=== PATIENT | female | born 1985 | race Caucasian/White ===

== ENCOUNTER → 2019-09-28 11:33 | Outpatient (CLI) | payer OTHER, MEDICAID, SELFPAY ==
[2019-09-28 12:25] LABS: Add Manual Diff / Slide Review NO; Basophils Absolute Auto 100 /uL (0-100); Basophils Percent Auto 0.9 % (0-2); Eosinophils Absolute Auto 100 /uL (0-450); Eosinophils Percent Auto 1.3 % (2-4); Hematocrit 39.1 % (36-46); Hemoglobin 13.4 g/dL (12.0-16.0); Lymphocytes Absolute Auto 3500 /uL (1100-4500); Lymphocytes Percent Auto 43.3 % (25-40); Mean Corpuscular HGB Conc 34.1 % (30-36); Mean Corpuscular Hemoglobin 28.7 PG (26-34); Mean Corpuscular Volume 84.2 fL (80-100); Monocytes Absolute Auto 600 /uL (0-900); Monocytes Percent Auto 7.8 % (3-14); Neutrophils Absolute Auto 3800 /uL (1500-7000); Neutrophils Percent Auto 46.7 % (50-75); Platelet Count 344 X10^3/uL (150-400); Red Blood Cell Count 4.65 X10^6/uL (4.0-5.2); Red Cell Distribution Width 13.1 % (11.6-14.8); White Blood Cell Count 8.1 X10^3/uL (4.5-11.0)
[2019-09-28 13:18] LABS: Free T3, Triiodothyronine Free 3.57 pg/mL (2.77-5.27); Free T4, Direct Thyroxine 0.87 ng/dL (0.78-2.19)
[2019-09-28 13:32] LABS: Thyroid Stimulating Hormone 1.88 uIU/mL (0.47-4.68)
[2019-10-01 17:17] LABS: Anti Thyroglobulin Antibody < 1 IU/mL (< 2); Thyroid Peroxidase Antibodies 3 IU/mL (< 9)
== END ==
PROVIDERS: PCP Family Medicine; Visit Provider Family Medicine
DX: L65.9 Nonscarring hair loss, unspecified (principal)
CPT/HCPCS: 36415; 84439; 84443; 84481; 85025; 86376; 86800

== ENCOUNTER → 2024-10-26 09:45 | Outpatient (CLI) | payer OTHER, SELFPAY ==
--- NOTE | 2024-10-26 09:47 | DI.MG.S_ITS ---
UNILATERAL RIGHT DIGITAL DIAGNOSTIC MAMMOGRAM 3D/2D WITH ADDITIONAL VIEWS: 10/26/2024 CLINICAL: Additional evaluation requested from prior study. Comparison is made to exam dated: 07/22/2024 mammogram - Outside facility. The breasts are heterogeneously dense, which may obscure small masses (category c / 51-75% glandular tissue). There is a 1.1 cm irregular asymmetry in the right breast at 1 o'clock middle depth. There is architectural distortion associated with the asymmetry. This is confirmed with additional views. No other significant masses or calcifications are seen in the breast. IMPRESSION: INCOMPLETE: NEED ADDITIONAL IMAGING EVALUATION The 1.1 cm asymmetry and architectural distortion in the right breast persists with additional views, but remains indeterminate. An ultrasound is recommended. This was performed immediately following this exam. Based on the Tyrer Cuzick model (a risk assessment model) the patient's lifetime risk is 12.7% and her 10 year risk is 1.6%. According to the ACR, ACS, and NCCN guidelines, an annual breast MRI exam along with mammogram is recommended if the patient's lifetime risk is 20% or greater. This exam was interpreted at Station ID: [id number]. NOTE: For mammograms, a report in lay terms will be sent to the patient. Approximately 15% of breast malignancies will not be visualized mammographically. In the management of a palpable breast mass, a negative mammogram must not discourage biopsy of a clinically suspicious lesion. Electronically Signed By: Tiffanie frey/:10/26/2024 10:22:39 letter sent: Additional Imaging Needed ACR BI-RADS Category 0: Incomplete: Need Additional Imaging Evaluation
--- NOTE | 2024-10-26 09:47 | DI.US.S_ITS ---
LIMITED ULTRASOUND OF RIGHT BREAST AND AXILLA: 10/26/2024 CLINICAL: Patient returns today to evaluate a focal asymmetry in the right breast. Comparison is made to exams dated: 10/26/2024 mammogram - [facility] and 07/22/2024 mammogram - Outside facility. Color flow and real-time ultrasound of the right breast 12-3 o'clock, and axilla regions were performed. Mchugh scale images of the real-time examination were reviewed. There is a possible 0.5 cm x 0.3 cm x 0.5 cm irregular area of fibroglandular tissue with a microlobulated margin in the right breast at 1 o'clock anterior depth 2 cm from the nipple. This irregular area of fibroglandular tissue is hypoechoic with no posterior acoustic shadowing or enhancement. This has surrounding hyperechoic tissue. This might correlate with mammography findings, but is less suspicious under ultrasound. Color flow imaging demonstrates that there is an adjacent vascularity. No significant abnormalities were seen sonographically in the right axilla. IMPRESSION: SUSPICIOUS The possible 0.5 cm x 0.3 cm x 0.5 cm irregular area of fibroglandular tissue in the right breast is a questionable correlate to the concerning area of architectural distortion and asymmetry seen on mammogram. The mammographic appearance of this area is suspicious of malignancy. A stereotactic biopsy is recommended. Findings and recommendations were discussed with the patient in person by Dr. Stan Moreno at time of exam. This exam was interpreted at Station ID: [id number]. Electronically Signed By: Tiffanie frey/:10/26/2024 11:20:57 letter sent: Biopsy Required ACR BI-RADS Category 4: Suspicious
== END ==
LOC: MAMMO 09:47
PROVIDERS: PCP Family Medicine; Referring Provider Family Medicine; Visit Provider Family Medicine
DX: R92.8 Other abnormal and inconclusive findings on diagnostic imaging of breast (principal); R92.333 Mammographic heterogeneous density, bilateral breasts
CPT/HCPCS: 76642; 77065; G0279